=== PATIENT | female | born 1980 | race Caucasian/White ===

== ENCOUNTER 2020-10-14 07:38 | Emergency (ER) | payer BC, OTHER ==
[~2020-10-14] VITALS: Ht 160 cm; Wt 81.8 kg
[2020-10-14 07:51] VITALS: BP 127/90
[2020-10-14] MEDS ORDERED: CLIN150C15 PO (08:18)
--- NOTE | 2020-10-14 08:19 | PHYS DOC ---
Past History Past Medical History: No Pertinent History Past Surgical History: No Surgical History Alcohol Use: Occasionally Adult General Chief Complaint Chief Complaint: ABSCESS HPI HPI Patient is a 39-year-old female presenting for skin abnormality. 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 No history of MRSA, reports lesion concerned her so she tried to express area and pick at it over past several days. It has become more red, painful, warm to the touch with some mild milky colored discharge. She is concerned for developed abscess prompting her to come in for evaluation. No fever, systemic signs or symptoms of illness, recent travel or exposure Review of Systems Review of Systems Fourteen body systems of review of systems have been reviewed. See HPI for pertinent positives and negative responses, other aguirre all other systems are negative, non-pertinent or non-contributory Allergies Allergies Allergies Coded Allergies Type Severity Reaction Last Updated Verified No Known Drug Allergies 10/14/20 No Physical Exam Physical Exam Constitutional: Well developed, well nourished, no acute distress, non-toxic appearance. HENT: Normocephalic, atraumatic, bilateral external ears normal, oropharynx dry with poor dentition, no oral exudates, nose normal. Eyes: PERRLA, EOMI, conjunctiva normal, no discharge. Neck: Normal range of motion, no tenderness, supple, no stridor. Cardiovascular: Heart rate regular per monitor Lungs & Thorax: No respiratory distress or accessory muscle use, bilateral chest rise Abdomen: Abdomen soft, non-tender, bowel sounds present in all quadrants, no guarding or rebound, nonacute abdomen. Skin: Warm, dry, no rash. There is an area on inferolateral portion of left chin with open draining sore that is indurated, firm without streaking concerning for superficial abscess not meeting indication for incision and drainage with associated cellulitis, no involvement of oral mucosa or dentition Back: No tenderness, no CVA tenderness. Extremities: No tenderness, no cyanosis, no clubbing, ROM intact, no edema. Neurologic: Alert and oriented X 3, grossly normal motor & sensory function, no focal deficits noted. Psychologic: Affect normal, judgement normal, mood normal. Current Patient Data Vital Signs Vital Signs Date Time Temp Pulse Resp B/P (MAP) Pulse Ox O2 Delivery O2 Flow Rate FiO2 10/14/20 07:51 97.7 96 18 127/90 (102) 100 Room Air EKG EKG [] Radiology/Procedures Radiology/Procedures [] Heart Score C/O Chest Pain: No Risk Factors: Risk Factors: DM, Current or recent (<one month) smoker, HTN, HLP, family history of CAD, obesity. Risk Scores: Risk Factors: DM, Current or recent (<one month) smoker, HTN, HLP, family history of CAD, obesity. Course & Med Decision Making Course & Med Decision Making Discussed with the patient all findings. I discussed most likely diagnosis of simple abscess not requiring incision and drainage with associated cellulitis. I discussed little indication for further diagnostic work-up and/or ER intervention. With that said, joint decision made for continued supportive care at home and starting antibiotics to avoid potentially worse abscess in area that could cause poor cosmesis if incision and drainage is required. Patient has no history of MRSA but I have concerns given exposure and overall hygiene, as such joint decision was made to start clindamycin. X1 dose was administered while in ER and tolerated well with subsequent prescription written. I stressed need for close outpatient follow-up to review today's ER visit. Strict return precautions were also discussed at length with good understanding by patient. Patient voiced understanding and agreement with the plan. Patient knows to come back for repeat evaluation if concerning signs or symptoms present prior to outpatient follow-up. Hemodynamically stable, ambulatory and well-appearing at time of disposition. Dragon Disclaimer Dragon Disclaimer This electronic medical record was generated, in whole or in part, using a voice recognition dictation system. Departure Departure: Impression: Primary Impression: Abscess or cellulitis of chin Disposition: HOME / SELF CARE / HOMELESS Condition: STABLE Referrals: DAVON BEAR (PCP) Additional Instructions: You were evaluated in the Emergency Department for an abscess. You should soak the area in warm water for 20-30 minutes 3-4 times daily. Contact your doctor when the abscess comes to a head (looks like it is almost ready to pop open) and needs to be drained. Please keep the areas surrounding the abscess clean and dry. Take the antibiotics prescribed to you in full as directed. Please follow up with your primary care physician as needed. If you do not have a primary doctor, you can call your insurance company to find one. If you do not have insurance, you can go to the finance/registration department for more assistance. Return to the Emergency Department if you experience worsening pain, persistent fevers greater than 100.4, an increase in area of redness, increased tend erness/warmth around the abscess, foul smelling discharge from the abscess, Scripts Clindamycin Hcl (CLINDAMYCIN HCL) 150 Mg Capsule 3 CAP PO TID for cellulitis for 7 Days, #63 CAP Prov: BLANCA GOLDSMITH DO 10/14/20 BLANCA GOLDSMITH DO Oct 14, 2020 08:19
== END 2020-10-14 09:00 | disposition home or self-care (01) ==
LOC: ER 07:38
DX: L03.211 Cellulitis of face (principal)
CPT/HCPCS: 99283-25